=== PATIENT | female | born 1985 | race American Indian/Alaskan Native ===

== ENCOUNTER 2018-03-04 17:14 | Emergency (ER) | payer MEDICAID ==
[~2018-03-04] VITALS: Ht 154.9 cm; Wt 69.8 kg
== END 2018-03-04 20:10 | disposition home or self-care (01) ==
LOC: ED 17:14
DX: N92.1 Excessive and frequent menstruation with irregular cycle (principal)
CPT/HCPCS: 36415; 76830; 76856; 80053; 81001; 84702; 84703; 85025; 85610; 99284